=== PATIENT | female | born 1980 | race Two or more races ===

== ENCOUNTER 2018-02-18 14:14 | Emergency (ER) | payer MEDICAID, OTHER ==
[~2018-02-18] VITALS: Ht 152.4 cm; Wt 65.5 kg
[2018-02-18 15:20] LABS: BASOPHILS # (AUTO) 0.1 X10'3 (0-0.2); BASOPHILS % (AUTO) 0.4 % (0-1); EOSINOPHILS # (AUTO) 0.3 X10'3 (0-0.9); HEMATOCRIT 41.7 % (35.0-45.0); HEMOGLOBIN 14.4 g/dl (12.0-16.0); LYMPHOCYTES # (AUTO) 2.2 X10'3 (1.1-4.8); LYMPHOCYTES % (AUTO) 15.4 % (21-51); MEAN CORPUSCULAR HGB CONC 34.5 % (33.0-36.5); MEAN CORPUSCULAR VOLUME 86.9 FL (78-98); MEAN PLATELET VOLUME 10.1 FL (7.4-10.4); MONOCYTES # (AUTO) 0.8 X10'3 (0-0.9); MONOCYTES % (AUTO) 5.5 % (2-12); NEUTROPHILS # (AUTO) 11.1 X10'3 (1.8-7.7); NEUTROPHILS % (AUTO) 76.7 % (42-75); PLATELET COUNT 184 X10'3 (140-440); RED CELL DISTRIBUTION WIDTH 13.2 % (11.5-14.5); WHITE BLOOD COUNT 14.4 X10'3 (4.5-11.0)
[2018-02-18 15:31] LABS: PARTIAL THROMBOPLASTIN TIME 24 SECONDS (22-32); PROTHROMBIN TIME 10.6 SECONDS (9.0-12.0)
[2018-02-18 15:39] LABS: URINE HCG POSITIVE (NEG)
[2018-02-18 15:41] LABS: CLARITY,URINE CLOUDY (Clear); COLOR,URINE RED (Yellow)
[2018-02-18 15:53] LABS: UA COLLECTION TYPE VOIDED
[2018-02-18] MEDS ORDERED: ondansetron/PF 4mg/2ml inj IV ONE (15:55)
[2018-02-18] MEDS ORDERED: normal saline 1000ML IV soln IVB ONE (15:55)
[2018-02-18] MEDS ORDERED: morphine 4 MG/ML inj SYRINge IV ONE (15:55)
[2018-02-18 15:58] LABS: BACTERIA,URINE NONE SEEN /HPF (Neg); MUCUS STRANDS NONE SEEN /LPF (Neg); RBC,URINE TNTC /HPF (0-2); SQUAMOUS EPITHELIAL CELL,UR NONE SEEN /LPF (FEW); WBC,URINE 0-4 /HPF (0-4)
[2018-02-18 16:38] LABS: ALANINE AMINOTRANSFERASE 28 U/L (12-78); ALBUMIN 3.2 G/DL (3.4-5.0); ALBUMIN/GLOBULIN RATIO 0.9 (1.1-1.5); ALKALINE PHOSPHATASE 89 IU/L (46-116); ANION GAP 11 (8-16); ASPARTATE AMINO TRANSFERASE 15 U/L (10-37); BLOOD UREA NITROGEN 7 MG/DL (7-18); BUN/CREATININE RATIO 10.9 (6.6-38.0); CALCIUM 8.6 MG/DL (8.5-10.1); CHLORIDE 100 MMOL/L (99-107); CREATININE 0.64 MG/DL (0.40-0.90); GLUCOSE 339 MG/DL (70-104); POTASSIUM 3.5 MMOL/L (3.5-5.1); SODIUM 134 MMOL/L (135-145); TOTAL CARBON DIOXIDE 23.4 MMOL/L (24-32); TOTAL PROTEIN 6.8 G/DL (6.4-8.2); eGFR > 90 ML/MIN
[2018-02-18 20:27] VITALS: BP 99/54
[2018-02-18] MEDS ORDERED: ACET-2006 PO (21:46)
== END 2018-02-18 22:07 | disposition home or self-care (01) ==
LOC: ER 14:14
DX: O20.0 Threatened abortion (principal); Z3A.01 Less than 8 weeks gestation of pregnancy; Z90.49 Acquired absence of other specified parts of digestive tract; Z79.899 Other long term (current) drug therapy
CPT/HCPCS: 36415; 76801; 76817; 80053; 81001; 81025; 84702; 85025; 85610; 85730; 86885; 86900; 86901; 96374; 96375; 99285; J2270; J2405; J7030; 76856

== ENCOUNTER 2021-07-28 21:14 | Emergency (ER) | payer MEDICAID ==
[~2021-07-28] VITALS: Ht 152.4 cm; Wt 73.2 kg
[~2021-07-28 21:14] MED LIST: ACET-2006 PO
[2021-07-28] MEDS ORDERED: HYDROcodone/acetaminophen 10/325mg tab PO ONE ×2 (23:40→23:45)
[2021-07-29] MEDS ORDERED: HYDR-3965 PO (00:27)
--- NOTE | 2021-07-29 00:57 | NUR ---
PATIENT HAD A SLING APPLIED TO RIGHT ARM. NO OBVIOUS FX'S. DISCHARGE INST PRINTED IN [place] FOR PATIENTS TRAY. RX GIVEN FOR PAIN MEDICATIONS. PATIENT INSTRUCTED NOT TO DRIVE. THEY HAVE AGREED TO HAVE SOMEONE TO COME AND PICK HER UP.
[2021-07-29 01:35] VITALS: BP 138/72
== END 2021-07-29 01:39 | disposition home or self-care (01) ==
LOC: ER 21:15
DX: S80.02XA Contusion of left knee, initial encounter (principal); M79.662 Pain in left lower leg; M25.511 Pain in right shoulder; Z90.89 Acquired absence of other organs; Z79.899 Other long term (current) drug therapy; W10.8XXA Fall (on) (from) other stairs and steps, initial encounter; Y93.89 Activity, other specified; Y92.89 Other specified places as the place of occurrence of the external cause; Y99.8 Other external cause status
CPT/HCPCS: 71046; 73000; 73030; 73564; 73590; 73610; 99284

== ENCOUNTER 2022-05-30 02:45 | Emergency (ER) | payer MEDICAID ==
[~2022-05-30] VITALS: Ht 152.4 cm; Wt 77.8 kg
[2022-05-30] MEDS ORDERED: acetaminophen 325mg tablet PO ONE (03:15)
[2022-05-30 04:13] LABS: BASOPHILS # (AUTO) 0.1 X10'3 (0-0.2); BASOPHILS % (AUTO) 0.6 % (0-1); EOSINOPHILS # (AUTO) 0.3 X10'3 (0-0.9); EOSINOPHILS % (AUTO) 2.1 % (0-6); HEMATOCRIT 43.8 % (35.0-45.0); HEMOGLOBIN 14.8 g/dl (12.0-16.0); LYMPHOCYTES # (AUTO) 5.3 X10'3 (1.1-4.8); LYMPHOCYTES % (AUTO) 39.4 % (21-51); MEAN CORPUSCULAR HEMOGLOBIN 28.8 PG (27.0-31.0); MEAN CORPUSCULAR HGB CONC 33.9 g/dL (33.0-36.5); MEAN CORPUSCULAR VOLUME 85.2 FL (78-98); MEAN PLATELET VOLUME 11.3 FL (7.4-10.4); MONOCYTES # (AUTO) 1.1 X10'3 (0-0.9); MONOCYTES % (AUTO) 7.8 % (2-12); NEUTROPHILS # (AUTO) 6.7 X10'3 (1.8-7.7); NEUTROPHILS % (AUTO) 50.1 % (42-75); PLATELET COUNT 210 X10'3 (140-440); RED BLOOD COUNT 5.14 X10'6 (4.20-5.60); WHITE BLOOD COUNT 13.5 X10'3 (4.5-11.0)
[2022-05-30 04:14] LABS: ALANINE AMINOTRANSFERASE 26 U/L (12-78); ALBUMIN 3.5 G/DL (3.4-5.0); ALBUMIN/GLOBULIN RATIO 0.9 (1.1-1.5); ALKALINE PHOSPHATASE 114 IU/L (46-116); ANION GAP 10 (8-16); ASPARTATE AMINO TRANSFERASE 21 U/L (10-37); BILIRUBIN,TOTAL 0.5 MG/DL (0.1-1.0); BLOOD UREA NITROGEN 14 MG/DL (7-18); BUN/CREATININE RATIO 21.2 (6.6-38.0); CALCIUM 9.3 MG/DL (8.5-10.1); CHLORIDE 104 MMOL/L (99-107); CREATININE 0.66 MG/DL (0.40-0.90); GLUCOSE 121 MG/DL (70-104); POTASSIUM 3.3 MMOL/L (3.5-5.1); SODIUM 140 MMOL/L (135-145); TOTAL CARBON DIOXIDE 25.8 MMOL/L (24-32); TOTAL PROTEIN 7.5 G/DL (6.4-8.2); eGFR > 90 ML/MIN
[2022-05-30 05:17] LABS: URINE HCG NEGATIVE (NEG)
[2022-05-30 07:21] VITALS: BP 100/64
--- NOTE | 2022-05-30 09:37 | NUR ---
Pt and son given and understands d/c instructions (in [place]). IV d/c'd, catheter was intact. Ambulatory with a steady gait.
== END 2022-05-30 09:35 | disposition home or self-care (01) ==
LOC: ER 02:46
DX: M54.12 Radiculopathy, cervical region (principal); R51.9 Headache, unspecified; R20.0 Anesthesia of skin; E11.9 Type 2 diabetes mellitus without complications; Z98.890 Other specified postprocedural states
CPT/HCPCS: 36415; 70450; 71045; 80053; 81025; 82948; 84484; 85025; 85610; 93005; 99285

== ENCOUNTER 2024-06-15 14:20 | Emergency (ER) | payer MEDICAID ==
[~2024-06-15] VITALS: Ht 152.4 cm; Wt 76.0 kg
[2024-06-15] MEDS: normal saline 1000ML IV soln IVB ONE (15:55)
[2024-06-15 16:14] LABS: BASOPHILS # (AUTO) 0.1 X10'3 (0-0.2); BASOPHILS % (AUTO) 0.7 % (0-1); EOSINOPHILS # (AUTO) 0.2 X10'3 (0-0.9); HEMATOCRIT 43.1 % (35.0-45.0); HEMOGLOBIN 14.6 g/dl (12.0-16.0); MEAN CORPUSCULAR HEMOGLOBIN 29.1 PG (27.0-31.0); MEAN CORPUSCULAR HGB CONC 33.9 g/dL (33.0-36.5); MEAN CORPUSCULAR VOLUME 85.9 FL (78-98); MONOCYTES # (AUTO) 0.7 X10'3 (0-0.9); RED BLOOD COUNT 5.01 X10'6 (4.20-5.60)
[2024-06-15 16:16] LABS: EOSINOPHILS % (AUTO) 1.9 % (0-6); LYMPHOCYTES # (AUTO) 3.1 X10'3 (1.1-4.8); MEAN PLATELET VOLUME 11.4 FL (7.4-10.4); MONOCYTES % (AUTO) 7.2 % (2-12); NEUTROPHILS # (AUTO) 6.2 X10'3 (1.8-7.7); NEUTROPHILS % (AUTO) 60.2 % (42-75); PLATELET COUNT 175 X10'3 (140-440); RED CELL DISTRIBUTION WIDTH 13.9 % (11.5-14.5); WHITE BLOOD COUNT 10.4 X10'3 (4.5-11.0)
[2024-06-15 16:19] LABS: ALBUMIN 3.1 G/DL (3.4-5.0); ANION GAP 6 (8-16); BLOOD UREA NITROGEN 14 MG/DL (7-18); BUN/CREATININE RATIO 17.5 (10.0-20.0); CHLORIDE 102 MMOL/L (99-107); GLUCOSE 254 MG/DL (70-104); POTASSIUM 3.6 MMOL/L (3.5-5.1); SODIUM 137 MMOL/L (135-145); TOTAL CARBON DIOXIDE 29.5 MMOL/L (24-32); eCRCL 64 ML/MIN; eGFR 78 ML/MIN
[2024-06-15 16:28] LABS: LARGE PLATELETS FEW; PLATELET ESTIMATE NORMAL
[2024-06-15] MEDS: proCHLORperazine 10 MG/2 ml inj IV ONE (17:05)
[2024-06-15 17:06] VITALS: BP 127/68; PULSE 68; RESP 14; O2SAT 97
[2024-06-15 17:25] VITALS: TEMP 98.3
== END 2024-06-15 17:28 | disposition home or self-care (01) ==
LOC: ER 14:20
DX: R42 Dizziness and giddiness (principal); E11.65 Type 2 diabetes mellitus with hyperglycemia; Z79.1 Long term (current) use of non-steroidal anti-inflammatories (NSAID); Z90.49 Acquired absence of other specified parts of digestive tract
CPT/HCPCS: 36415; 70450; 80048; 82948; 85008; 85025; 96361; 96374; 99285; J0780; J7030